=== PATIENT | female | born 1975 | race Caucasian/White ===

== ENCOUNTER → 2019-05-11 | Outpatient (CLI) | payer OTHER ==
--- NOTE | 2019-05-16 09:19 | SLEEPCENT ---
DATE OF PROCEDURE: 05/11/2019 ORDERED BY: Eva Gustafson Nocturnal polysomnography was performed for the titration of pressure therapy in this patient with a history of obstructive sleep apnea syndrome and apnea-hypopnea index of 36.9. For testing, the patient was fit with a ResMed Air Touch F20 full face mask of medium size and 6 cm of water pressure were applied to the circuit and the lights were extinguished. 8 hours and 9 minutes of data were reviewed. There were 383 minutes of sleep identified. Sleep latency was mildly prolonged at 33.5 minutes. Rapid eye movement (REM) latency was normal at 72 minutes. Sleep architecture was fair with 3 REM cycles. Overall sleep efficiency was 80.8%. The patient's electrocardiogram showed a sinus rhythm with an average heart rate of 68 beats per minute. Rate ranged 58-102. Electroencephalogram (EEG) showed normal waveforms for awake and sleep stages. Respiratory events were palliated with C-PAP at a pressure of +9. There was some limb activity, but arousals from limb events were few. IMPRESSION: Obstructive sleep apnea syndrome (G47.33). RECOMMENDATION: Nightly use of pressure therapy at 9 cm of water.
== END ==
LOC: M SLEEP 19:44
PROVIDERS: ATTEND Nurse Practitioner Family
DX: G47.33 Obstructive sleep apnea (adult) (pediatric) (principal)